=== PATIENT | male | born 1965 | race Caucasian/White ===

== ENCOUNTER → 2020-01-12 | Outpatient (CLI) | payer OTHER ==
[2020-01-12 12:00] VITALS: BP 130/81
[2020-01-12 12:25] VITALS: BP 166/96
--- NOTE | 2020-01-12 13:22 | NUR ---
ARRIVED AMBULATORY. MADE SELF COMFORTABLE IN RECLINER. HISTORY AND ALLERGY REVIEWED. TIME OUT COMPLETED. EDUCATION COMPLETED. PT DENIES QUESTIONS. THERAPUTIC PHLEBOTOMY OF 500ML REMOVED VIA GRAVITY PER PROTOCOL. TOLERATED WELL. H+H DRAWN PER ORDER. DENIES QUESTIONES OR NEEDS AT DISCHARGE.
[2020-01-12 13:52] LABS: HEMOGLOBIN 18.2 gm/dL (14.0-18.0)
== END ==
LOC: M.INFUS 04:27
PROVIDERS: ATTEND Family Medicine
DX: D75.1 Secondary polycythemia (principal)

== ENCOUNTER → 2020-01-31 | Outpatient (CLI) | payer OTHER ==
[2020-01-31 11:23] LABS: HEMATOCRIT 52.2 % (42.0-52.0)
== END ==
LOC: M.LAB 10:59
PROVIDERS: ATTEND Family Medicine
DX: D45 Polycythemia vera (principal)

== ENCOUNTER 2021-02-27 13:24 | Inpatient (IN) | payer OTHER ==
[~2021-02-27] VITALS: Ht 188 cm; Wt 158.8 kg
[2021-02-27 13:27] VITALS: BP 129/73
[2021-02-27 13:59] LABS: ABSOLUTE BASOPHILS 0.1 thou/uL (0.0-0.2); ABSOLUTE EOSINOPHILS 0.2 thou/uL (0.0-0.7); ABSOLUTE LYMPHOCYTES 2.2 thou/uL (0.8-5.3); ABSOLUTE MONOCYTES 0.8 thou/uL (0.0-1.2); ABSOLUTE NEUTROPHILS 7.2 thou/uL (1.6-8.1); BASOPHILS 0.9 %; EOSINOPHILS 2.2 %; HEMATOCRIT 41.8 % (42.0-52.0); HEMOGLOBIN 14.4 gm/dL (14.0-18.0); LYMPHOCYTES 20.7 %; MCH 32.7 pg (26.0-34.0); MCHC 34.4 g/dL (28.0-37.0); MCV 95.1 fL (80.0-100.0); MONOCYTES 7.5 %; MPV 8.2 fl. (7.2-11.1); NUCLEATED RBCS 0 /100WBC; PLATELET COUNT* 213 thou/uL (150-400); POLYS 68.7 %; RBC 4.39 mil/uL (4.50-6.00); RDW-CV 14.8 % (10.5-14.5); WBC 10.5 thou/uL (4.0-11.0)
[2021-02-27] MEDS ORDERED: PREDNISONE 20 M20 M1 PO (14:01)
[2021-02-27] MEDS ORDERED: FLEXERIL PO (14:01)
[2021-02-27] MEDS ORDERED: PERCOCET PO (14:01)
[2021-02-27 14:11] LABS: CALCIUM 8.8 mg/dL (8.5-10.1); CREATININE 1.2 mg/dL (0.6-1.3); POTASSIUM 3.9 mmol/L (3.5-5.1)
[2021-02-27 14:16] LABS: ALBUMIN 3.3 g/dL (3.4-5.0); TOTAL BILIRUBIN 0.2 mg/dL (<0.1-1.0); TOTAL PROTEIN 6.4 g/dL (6.4-8.2)
[2021-02-27 15:40] VITALS: BP 152/88
[2021-02-27] MEDS ORDERED: FENOFIBRATE160 MG PO (17:55)
[2021-02-27] MEDS ORDERED: LIPITOR 20 MG T20 M1 PO (17:55)
[2021-02-27] MEDS ORDERED: CARVEDILOL25 MG PO (17:55)
[2021-02-27] MEDS ORDERED: DOXAZOSIN MESYLA8 MG PO (17:55)
[2021-02-27] MEDS ORDERED: AVAPRO300 MG PO (17:56)
[2021-02-27] MEDS ORDERED: LUNESTA3 MG PO (17:56)
[2021-02-27] MEDS ORDERED: TORSEMIDE20 MG PO (17:56)
[2021-02-27] MEDS ORDERED: LEVO-T100 MCG PO (17:56)
[2021-02-27] MEDS ORDERED: METFORMIN HCL500 M3 PO (17:57)
[2021-02-27] MEDS ORDERED: SPIRONOLACTONE25 MG PO (17:57)
[2021-02-27] MEDS ORDERED: MELATONIN3 M1 PO (17:57)
[2021-02-27] MEDS ORDERED: TRAMADOL 50 MG50 MG PO (17:58)
[2021-02-27 19:58] VITALS: BP 140/78
[2021-02-28] VITALS: BP 109/79
[2021-02-28 05:30] VITALS: BP 110/64
[2021-02-28 08:08] VITALS: BP 125/52
[2021-02-28] MEDS ORDERED: IBU800 MG PO (08:45)
[2021-02-28] MEDS ORDERED: GRALISE600 MG PO (08:46)
[2021-02-28] MEDS ORDERED: DOXAZOSIN MESYLA2 MG PO (08:47)
[2021-02-28 08:51] VITALS: BP 157/89
--- NOTE | 2021-02-28 10:16 | NUR ---
Nutrition: Pt admitted with back pain. Consult came through for "carb control." Diet ordered was Regular, I restricted it to carb control. H/o DM, HTN, neuropathy. Med: statin. Labs: BG 139, albumin 3.3. Pt was asleep at time of visit. No other nutrition concerns at this time. Low risk.
--- NOTE | 2021-02-28 12:28 | NUR ---
cm s/w pt who indicated he has a long withstanding hx with chronic back px. pt has had 3 back sx within 20 years. pt indicated he doesnt recall his back hurting this bad, it has been debilitating, as evidenced by pt being in bed for "the last four days." pt believes he injured his back moving lawn furniture. pt has hx with outpt therapy. pt want hh as he indicated he has a home gym with the exercise equip he needs. pt lives with and kids, usually active, "riding jason and fishing." pt has walker, cane, and cpap. poc is for neuro consult and ortho consult. cm to cont to follow.
[2021-02-28 16:03] VITALS: BP 132/76
--- NOTE | 2021-02-28 16:40 | NUR ---
PT REMAINED ALERT AND ORIENTED. PT C/O PAIN, MEDS GIVEN ORDERED. FALL RISK PRECAUTIONS IN PLACE. HOURLY ROUNDING COMPLETED. CALL LIGHT WITHIN REACH.
[2021-02-28 20:56] VITALS: BP 129/67
[2021-03-01 07:50] VITALS: BP 111/55
--- NOTE | 2021-03-01 14:12 | NUR ---
Pt refused MRI, neuro signed off. Anticipate dc today.
[2021-03-01 16:25] VITALS: BP 134/82
--- NOTE | 2021-03-01 18:09 | NUR ---
PATIENT HAS REMAINED A&OX4, PLEASANT AND COOPERATIVE WITH CARES THIS SHIFT. HAS REQUIRED FREQUENT PAIN MEDICATION FOR SEVERE BACK PAIN WITH ONLY PARTIAL RESULTS. PATIENT REFUSED MRI THIS MORNING, EVEN AFTER BEING OFFERED ONE TIME DOSE OF IV ATIVAN (DR. ANGELES AWARE). DR. BURKS CONSULTED. BEDREST MAINTAINED. CALL LIGHT AND FREQUENTLY USED ITEMS WITHIN REACH.
[2021-03-01 19:15] VITALS: BP 153/94
[2021-03-02 07:58] VITALS: BP 133/81
--- NOTE | 2021-03-02 15:02 | NUR ---
Surgery consulted, no surgical plan warranted at this time. Continue to monitor pain control. If Pt wants HH at dc, fax referral to [facility] at [phone]. Fax H&P, facesheet and dc orders.
[2021-03-02 16:00] VITALS: BP 130/76
--- NOTE | 2021-03-02 18:01 | NUR ---
PATIENT RESTING IN BED. ALERT AND ORIENTED X4. C/O BACK PAIN. BACLOFEN AND OXYCODONE X2 GIVEN. ICE PACKS PLACED TO BACK. ROOM AIR DURING DAY SHIFT, CPAP DURING NIGHT. BLOOD SUGARS MONITORED. NO INSULIN ORDERED. IV TO LEFT AC, SALINE LOCKED, PATENT. BED IN LOW/LOCKED POSITION. CALL LIGTH WITHIN REACH. ALL QUESTIONS AND CONCERNS ADDRESSED.
[2021-03-02 20:00] VITALS: BP 133/80
--- NOTE | 2021-03-03 04:46 | NUR ---
PT A&O X 4. VSS ON RA. MEDS GIVEN ORDERED. PAIN MANAGED WITH OXYCODONE AND MUSCLE RELAXERS. USED URINAL TO VOID. CALL LIGHT WITHIN REACH. WILL CONTINUE TO MONITOR.
--- NOTE | 2021-03-03 07:20 | CON ---
[address] [address] CONSULTATION Name: LISSETH ARMENDARIZ Room: [address] IN M.R.#: [id number] Admission: 02/27/21 Attend Phys: Amanda Myers Discharge: Date of : 61 Report #: [id number] THIS REPORT FOR: cc: Juvenal Ruano,Rito Constantino II, DO ~ DATE OF CONSULTATION: 03/01/2021 ORTHOPEDIC CONSULTATION CHIEF COMPLAINT: Low back pain. HISTORY OF PRESENT ILLNESS: The patient is a 55-year-old male with medical history of CHF, diabetes, hypertension, neuropathy and previous back surgeries in 1992, 2014 and 2015. Most recent by ____, his partner Dr. Demond Jimenez also had performed back surgery. The patient states he is seen these gentlemen recently as 3 weeks ago; however, approximately 3-4 days ago, he was doing yard work behind a trailer, when he was loading and felt sudden pinching sensation. He went inside and sat down for most of the evening and when he was feeling better, he tried to get up and had difficulty with walking. Pain was sharp and stabbing lasted for most of the morning of the next day, right up to 8/10. He called 911 and was trying Tylenol, ibuprofen and aspirin as well as tramadol and was brought to the Emergency Room for further evaluation. He was then admitted for last several days. Did have an MRI ordered, but the patient was noncompliant with getting this test done and declined to continue due to his larger size and difficulty fitting into the magnet hole. We are consulted for further evaluation. PAST MEDICAL HISTORY: CHF, diabetes mellitus, hypertension, neuropathy, previous back surgeries and low back pain. ALLERGIES: The patient denies any significant allergies. PAST SURGICAL HISTORY: Three back surgeries as above. MEDICATIONS: Listed in chart and H and P. SOCIAL HISTORY: The patient denies any illicit drugs. Does need occasional use of marijuana. States he does not smoke tobacco, does chew tobacco and has a past alcohol use. FAMILY HISTORY: Noncontributory. REVIEW OF SYSTEMS: GENERAL: The patient denies any [place] [address] CONSULTATION Name: LISSETH ARMENDARIZ Room: [address]#: [id number] Admission: 02/27/21 Attend Phys: Amanda Myers Discharge: Date of : 61 Report #: [id number] RESPIRATORY: Denies any cough, shortness of breath. CARDIOVASCULAR: The patient denies any chest pain. GASTROINTESTINAL: The patient denies any nausea or vomiting. MUSCULOSKELETAL: The patient does have back pain. A 12-point system review of systems is performed and negative other than the pertinent positives in the above review of systems. PHYSICAL EXAMINATION: VITAL SIGNS: Temperature 36.4, pulse 66, respirations 17, blood pressure 152/88. GENERAL APPEARANCE: The patient is alert and oriented, in mild distress. Notable pain throughout the lower back while adjusting in bed. The patient has poor hygiene. 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 HEENT: Atraumatic. Ears patent. Nose: Moist mucous membranes throughout the lips and tongue. CARDIOVASCULAR: Regular rate and rhythm. No gallops or rubs. LUNGS: Clear bilaterally. Normal air movement. ABDOMEN: Soft, nontender, no HSM noted. SKIN: Warm, dry. Color normal for situation. EXTREMITIES: The patient does have pain throughout the lower back, but denies any weakness in the right or left lower extremities. Sensation is intact throughout the right and left lower extremities other than what was prior decreased due to his previous surgeries. MUSCULOSKELETAL: The patient has right paravertebral tenderness to deep palpation at the L4-L5 region. No gross deformity. No lesions noted to the previous incisions. No significant hematoma or swellings in this region. The patient has negative straight leg raise, but does have pain with flexion forward in a seated position when asked to sit up on the edge of the bed without assistance and at this time he is declining due to significant pain. IMAGING: The patient had a CT of abdomen and pelvis with impressions as no acute process with abdomen and pelvis, hepatic steatosis. The x-ray of the hip and pelvis revealed a single view with AP and frog leg lateral view of the hip on the right side shows hip joint spaces are well preserved. Mild osteophytosis of the right lateral femoral head. Sacrum, SI joints and pubic symphysis are normal with only mild degenerative changes. ASSESSMENT: Intractable low back pain. Acute exacerbation of his chronic back pain, suspected piriformis syndrome, chronic diastolic heart failure, hypertension, hypersensitivity lung disease, diabetes type 2, peripheral neuropathy. PLAN: At this time, the patient is currently be [place] [address] CONSULTATION Name: LISSETH ARMENDARIZ Room: [address] IN R.#: [id number] Admission: 02/27/21 Attend Phys: Amanda Myers Discharge: Date of : 61 Report #: [id number] recommend adding in a steroid Dosepak or prednisone taper. This was discussed with Dr. Nichols in detail. The patient also discussed possible treatment with muscle relaxers, which he states, have helped in the past. Cyclobenzaprine is discussed as well as with Dr. Nichols. Home medications are to be continued as well. At this time, no orthopedic intervention for a surgical evaluation as recommended. The patient was recommended the MRI of the lumbar spine; however, due to his anxiety and his noncompliance, the patient has declined to proceed with this test. It Is recommended that the patient be discharged once he is more stable to follow up with his neurosurgeon, ____ as soon as possible in order to continue monitoring his chronic situations. I would recommend continued pain control as necessary to allow the patient to discharge into his normal vehicle and get to his previous surgeon's location. Thank you very much for this consultation. <ELECTRONICALLY SIGNED> By: Rito Smith II, DO 03/03/21 0720 1721 [id number] Smith II, DO /nt
[2021-03-03 08:00] VITALS: BP 143/78
[2021-03-03 16:33] VITALS: BP 130/78
--- NOTE | 2021-03-03 19:33 | NUR ---
PT MOVING A LITTLE BIT BETTER THIS EVENING STILL COIULD NOT GET UP AND WALK. VSS AFEBRILE. WILL CONTINUE TO MONITOR PLAN OF CARE.
[2021-03-03 20:20] VITALS: BP 137/81
--- NOTE | 2021-03-04 05:47 | NUR ---
PT AO X4 LYING IN BED AT TIME OF ASSESSMENT. PT COMPLAINS OF PAIN IN BACK THAT IS 4-6/10 FOR WHICH HE IS TAKING OXYCODONE,AND ROBAXIN. HE WAS STILL HAVING SOME SPASM AND PAIN SO THIS PM WE ADDED ULTRAM. THIS SEEMS TO KEEP THE SPASM DOWN A BIT. HE IS HOPEFUL TO SIT BEDSIDE TODAY AND BE ABLE TO GET OUT OF BED. HE IS WORRIED ABOUT BEING CONSTIPATED WITH ALL THE NARCOTICS HE HAS BEEN TAKING AND IS REQUESTING SOME MAG CITRATE TO HELP WITH THIS, LAST BM WAS YESTERDAY BUT WAS HARD TO PASS. CALL LIGHT WITHIN REACH
[2021-03-04 08:00] VITALS: BP 134/85
[2021-03-04 17:32] VITALS: BP 116/73
--- NOTE | 2021-03-05 06:38 | NUR ---
PT AO X4 STILL HAVING PAIN AND TIGHTNESS IN HIS BACK DESPITE PAIN MEDS AND MUSCLE RELAXERS. HE DID HAVE A BM LAST PM WITH HELP OF MIRALAX. HE IS ANXIOUS TO GET HOME AND WANTS TO WORK WITH PT FOR MOBILITY AND STRENGTHENING. HOURLY ROUNDING COMPLETED.
[2021-03-05 08:04] VITALS: BP 148/91
--- NOTE | 2021-03-05 16:04 | NUR ---
Therapies to work with Pt. Plan is home
[2021-03-05 16:52] VITALS: BP 122/78
--- NOTE | 2021-03-05 17:01 | NUR ---
PT A&0X4, HR REGULAR, ON ROOM AIR, PT CONTINUES TO HAVE BACK PAIN PRN PERCOCET GIVEN. IV DISCONTINUED AND DOCTOR SAID IT WAS OK TO LEAVE OUT.
[2021-03-05 21:00] VITALS: BP 125/81
[2021-03-06 07:10] VITALS: BP 130/87
--- NOTE | 2021-03-06 07:52 | NUR ---
PATIENT SLEPT MOST OF THE NIGHT. PATIENT WAS GIVEN PAIN SCHEDULED AND PRN PAIN MEDS NEEDED WITH SOME RELIEF. PATIENT COULD POSSIBLY DISCHARGE TODAY. WILL CONTINUE TO MONITOR.
[2021-03-06 08:00] VITALS: BP 137/74
--- NOTE | 2021-03-06 13:35 | NUR ---
CM spoke with Pt, plan to dc home tomorrow with [facility]. Sister in room and she will assist Pt post dc, along with his kids. Plan to start Gabapentin today.
--- NOTE | 2021-03-06 16:28 | NUR ---
PT REMAINED ALERT AND ORIENTED. PT RESTING IN BED. PAIN MEDS GIVEN ORDERED. FALL RISK PRECAUTIONS IN PLACE. HOURLY ROUNDING COMPLETED.
[2021-03-06 16:51] VITALS: BP 142/82
[2021-03-06 19:45] VITALS: BP 136/88
--- NOTE | 2021-03-07 07:33 | NUR ---
PT SLEPT WELL OVERNIGHT. RECEIVING PO PAIN MED WITH GOOD RESULT.NO IV ACCESS. USING URINAL TO VOID. HOPEFUL FOR DISCHARGE HOME TODAY. ABLE TO USE CALL LITE AND MAKE NEEDS KNOWN.
[2021-03-07 08:00] VITALS: BP 168/91
[2021-03-07] MEDS ORDERED: PREDNISONE 20 M20 MG PO (10:18)
[2021-03-07] MEDS ORDERED: METHOCARBAMOL750 MG PO (10:18)
[2021-03-07 10:19] VITALS: BP 168/91
[2021-03-07 10:20] VITALS: BP 168/91
[2021-03-07 12:43] VITALS: BP 168/91
--- NOTE | 2021-03-07 15:06 | NUR ---
PT LEFT PER AMBULANCE, ON THE CART. PT HAS GOOD UNDERSTANDING OF DISCHARGE INSTRUCTIONS. PT'S SISTER IN THE ROOM WHEN GIVEN INSTRUCTIONS AND SHE HAS A GOOD UNDERSTANDING OF DISCHARGE MEDS. PT HAS A LEVEL 4 PAIN LEVEL ON DISCGARGE. PT DISCHARGED HOME WITH ALL BELONGINGS.
== END 2021-03-07 14:55 | disposition home health service (06) | DRG 74 ==
LOC: M.ERS 13:24 → M.3W 16:06 → M.TBA-ER 16:06 → M.3W 02-28 08:33
PROVIDERS: Family Medicine; ADMIT Internal Medicine; ATTEND Internal Medicine
PROC: 5A09357 Assistance with Respiratory Ventilation, Less than 24 Consecutive Hours, Continuous Positive Airway Pressure (ICD-10-PCS; principal; 2021-02-28)
DX: G57.01 Lesion of sciatic nerve, right lower limb (principal); I50.32 Chronic diastolic (congestive) heart failure; Z20.822 Contact with and (suspected) exposure to COVID-19; G89.29 Other chronic pain; I11.0 Hypertensive heart disease with heart failure; E11.42 Type 2 diabetes mellitus with diabetic polyneuropathy; K59.00 Constipation, unspecified; E78.5 Hyperlipidemia, unspecified; E11.40 Type 2 diabetes mellitus with diabetic neuropathy, unspecified; Z98.1 Arthrodesis status; Z79.899 Other long term (current) drug therapy; Z79.84 Long term (current) use of oral hypoglycemic drugs